=== PATIENT | male | born 1975 | race Caucasian/White ===

== ENCOUNTER 2021-05-14 14:31 | Outpatient (CLI) | payer SELFPAY ==
--- NOTE | 2021-05-14 14:39 | US_ITS ---
WS: [id number] INDICATION: Lump in neck TECHNIQUE: Ultrasound soft tissue area of concern FINDINGS: Ultrasound soft tissue area of concern LEFT posterior neck. In the area of concern, in the dorsal midline neck, eccentric to the LEFT is a lobulated ovoid echoge cary lesion measuring 2.5 x 0.5 x 3.6 cm most compatible with subcutaneous lipoma. No increased vascul arity. No other suspicious findings. US/US soft tissue head neck 50836 IMPRESSION: Lobulated ovoid lesion in the area of concern most compatible with subcutaneous lipoma.
== END 2021-05-14 14:32 | disposition home or self-care (01) ==
PROVIDERS: PCP Nurse Practitioner Family; Visit Provider Nurse Practitioner Family
DX: R22.1 Localized swelling, mass and lump, neck (principal)
CPT/HCPCS: 76536

== ENCOUNTER 2021-06-17 05:37 | Day surgery (SDC) | payer SELFPAY ==
[2021-06-15 08:31] VITALS: BMI 34.0
[2021-06-17] MEDS: sodium chloride 0.9% 1,000 ML 30 ML IV (06:04)
--- NOTE | 2021-06-17 06:25 | W.PM.OPSFHP ---
Same Day Surgery H&P Indication for Procedure/HPI DATE OF PROCEDURE: June 17, 2021 CHIEF COMPLAINT/INDICATIONFOR SURGICAL PROCEDURE: Screening colonoscopy PREOP DIAGNOSIS: Screening colonoscopy PLANNED PROCEDURE: Operation Date: 06/17/21 07:00 Proposed Procedures p Colonoscopy 68832/z12.11(Not Applicable) - Fausto Hardin MD Chief Complaint: Here for screening colonoscopy History of present illness: This is a pleasant 45 years old gentleman comes today for screening colonoscopy. Patient reports history of colon cancer of his father at age of 61 and he was diagnosed with stage IV couple of years ago and he last year. Also patient's uncle and his grandmother had history of colon cancer. Otherwise denies bleeding per rectum or Current weight 265 pounds and a BMI of 34. ROS All systems have been reviewed negative except as per the above or per problem list Medications/Allergies* Home Medications Medication Instructions Recorded Confirmed Type No Known Home Medications 06/16/21 06/16/21 History Allergies/Adverse Reactions Allergy/AdvReac Type Severity Reaction Status Date / Time No Known Allergies Allergy Verified 06/17/21 06:26 Current Medications: Generic Name Dose Route Start Last Admin Trade Name Freq PRN Reason Stop Dose Admin Sodium Chloride 1,000 mls @ 30 mls/hr 06/17/21 06:00 06/17/21 06:04 Sodium Chloride 0.9% IV 06/18/21 05:59 30 mls/hr .Q24H SHANTHI Administration Pertinent History/Comorbid Conditions* Family History (Updated 03/15/21 @ 13:14 by IRENE Thompson) Cancer Father colon cancer Social History Smoking and tobacco status: former smoker Pertinent Exam Findings alert, oriented x 3, clear to auscultation bilaterally, regular rate & rhythm and procedure specific exam findings (Abdominal examination nontender nondistended soft) Recommendations Surgery/Procedure today (Screening colonoscopy) Other Plans: Plan of care; After thorough history and physical examination and reviewing the chart, plan to perform screening colonoscopy. I discussed with the patient in details the risks,benefits,alternatives and indications.The risk of aspiration, bleeding, soft tissue injury, perforation of the colon and other potential concomitant complications were explained to the patient in details,also the potential need for Laproscoy/Laparotomy to repair any related complications including but not limited to colectomy and or Closotomy.The patient understood this well and did agree to proceed. Rationale was carefully and clearly discussed with the patient.Appropriate informed consent have been reviewed and signed All questions have been answered and all concerns have been addressed to patient's satisfaction. Verbal and written Instructions were given to the patient for colonoscopy prep. Coding Level of Care Code Acute Research [employer] for Benjamin Mccrary
--- NOTE | 2021-06-17 06:45 | ANES.PREANE2 ---
Pre-Anesthetic Assessment Height/Weight: Height 1.88 m Weight 120.202 kg Preop Diagnosis: Screening colonoscopy Operation Date: 06/17/21 07:00 Proposed Procedures p Colonoscopy 86192/z12.11(Not Applicable) - Fausto Hardin MD Was Beta Bhaskar taken within 24 hours: N/A Last intake: Intake Last Liquid Date 06/16/21 Last Liquid Time 22:00 Last Solid Date 06/15/21 Last Solid Time 19:30 Last Intake: 22:00 Exam alert Airway Submandibular: within normal limits Cervical ROM: within normal limits Mallampati: Class II Comments: Comments: good dentition History/ROS No significant history except as noted Pulmonary None reported CV/HEM None reported None reported Hepatic None reported GI None reported Metabolic None reported Musc/skel None reported Neuropsych None reported Anesthetic Plan ASA status: 2 Anesthesia: MAC Risk of > 500 ml blood loss (7ml/kg in children): No Medications/Allergies Home Medications Medication Instructions Recorded Confirmed Last Taken Type No Known Home Medications 06/16/21 06/16/21 Unknown History Allergies Allergy/AdvReac Type Severity Reaction Status Date / Time No Known Allergies Allergy Verified 06/17/21 06:26 Current Medications Generic Name Dose Route Start Last Admin Trade Name Freq PRN Reason Stop Dose Admin Sodium Chloride 1,000 mls @ 30 mls/hr 06/17/21 06:00 06/17/21 06:04 Sodium Chloride 0.9% IV 06/18/21 05:59 30 mls/hr .Q24H SHANTHI Administration PFSH Anesthesia Family History Father Cancer colon cancer Social History Smoking and tobacco status: former smoker Data Anesthesia Cardiac Studies: No Data to Display Anesthesia Procedures Date of Procedure 06/17/21
[2021-06-17 07:19] VITALS: BP 109/60; PULSE 71; RESP 18; TEMP 36.3; O2SAT 94
[2021-06-17 07:26] VITALS: BP 116/67; PULSE 65; RESP 18; O2SAT 94
--- NOTE | 2021-06-17 14:48 | ANE.PACU2 ---
Inpatient post-anesthesia follow up: Airway intact: Yes Vital signs: Temperature 97.4 F Pulse Rate 65 Respiratory Rate 18 Blood Pressure 116/67 Pulse Oximetry 94 Oxygen Delivery Me thod Room Air Oxygen Flow Rate Fraction of Inspir ed Oxygen Hydration adequate: Yes Nausea and vomiting: No Pain level: 1 Mental status: Baseline
== END 2021-06-17 07:40 | disposition home or self-care (01) ==
PROVIDERS: PCP Nurse Practitioner Family; Visit Provider Surgery
PROC: 0DJD8ZZ Inspection of Lower Intestinal Tract, Via Natural or Artificial Opening Endoscopic (ICD-10-PCS; CPT 45378; principal; 2021-06-17 07:00)
DX: Z12.11 Encounter for screening for malignant neoplasm of colon (principal); Z80.0 Family history of malignant neoplasm of digestive organs; K57.30 Diverticulosis of large intestine without perforation or abscess without bleeding; Z87.891 Personal history of nicotine dependence
CPT/HCPCS: 45378; J2704; J7030

== ENCOUNTER 2023-01-09 11:49 | Outpatient (CLI) | payer SELFPAY ==
--- NOTE | 2023-01-09 12:03 | XR_ITS ---
WS: [id number] Exam: XR hip LT 2-3V wo/w pel* [id number] Date/Time of Exam: 01/09/2023 12:14 PM Reason For Exam: M25.552 - Pain in left hip No fracture or dislocation. There is degenerative change of the superior lateral acetabulum. Normal s oft tissues. IMPRESSION: 1. Mild degenerative change of the acetabulum. No fracture or other significant finding.
== END 2023-01-09 11:50 | disposition home or self-care (01) ==
PROVIDERS: PCP Nurse Practitioner Family; Visit Provider Nurse Practitioner Family
DX: M25.552 Pain in left hip (principal)
CPT/HCPCS: 73502